=== PATIENT | female | born 1965 | race Caucasian/White ===

== ENCOUNTER 2018-04-12 09:35 | Day surgery (SDC) | payer OTHER ==
[2018-04-12] MEDS ORDERED: NS 1,000 ML IV (10:00)
[2018-04-12] MEDS ORDERED: PROPOFOL 200 MG/20 ML VIAL As Ordered ×3 (10:33→10:38)
== END 2018-04-12 11:15 | disposition home or self-care (01) ==
LOC: M OPP 09:35
DX: Z12.11 Encounter for screening for malignant neoplasm of colon (principal); K21.9 Gastro-esophageal reflux disease without esophagitis; Z79.899 Other long term (current) drug therapy; Z78.0 Asymptomatic menopausal state; Z83.3 Family history of diabetes mellitus; Z82.49 Family history of ischemic heart disease and other diseases of the circulatory system
CPT/HCPCS: 45378